=== PATIENT | female | born 1985 | race Caucasian/White ===

== ENCOUNTER 2017-09-15 12:50 | Outpatient (CLI) | payer MEDICAID | END 2017-09-15 12:51 | disposition home or self-care (01) | LOC: BICULT 12:50 | PROVIDERS: ATTEND Family Medicine | DX: R10.2 Pelvic and perineal pain (principal); N85.4 Malposition of uterus; Z97.5 Presence of (intrauterine) contraceptive device | CPT/HCPCS: 76856 ==

== ENCOUNTER 2018-06-29 13:30 | Outpatient (CLI) | payer MEDICAID ==
--- NOTE | 2018-06-29 15:31 | ULT ---
LIMITED ULTRASOUND RIGHT BREAST: DATE: 06/29/2018. HISTORY: Palpable abnormality in the upper inner right breast as well as a small mass seen in the upper outer right breast on mammographic evaluation. FINDINGS: Limited sonographic evaluation of the mass in the upper outer right breast demonstrates a hypoechoic oval-shaped mass with echogenic areas centrally demonstrating characteristics most compatible with a lymph node. This measures 5 mm and does correspond to mammographic abnormality. Limited sonographic evaluation of the right breast in the region of the patient's palpable abnormalit y demonstrates no mass or cystic lesion. This is located at the 1 o'clock position right breast. Limited ultrasound of the left breast was performed to evaluate for symmetry, and breast parenchyma i s overall symmetric to the right breast. However, at the 1 o'clock position left breast, there is a hypoechoic nodule with echogenic area centrally most compatible with a lymph node which is also seen on mammographic evaluation. IMPRESSION: 1. BIRADS category 2, benign findings. Routine annual mammographic screening is recommended. 2. Negative mammographic or sonographic findings should not preclude biopsy of a clinically suspicio us palpable abnormality. 3. Benign-appearing lymph nodes in each breast. These lymph nodes are also seen on mammographic marcelo luation. POS: OFF
== END 2018-06-29 13:31 | disposition home or self-care (01) ==
LOC: BICULT 13:30
PROVIDERS: ATTEND Nurse Practitioner Women's Health
DX: N63.10 Unspecified lump in the right breast, unspecified quadrant (principal)
CPT/HCPCS: 77066; G0279

== ENCOUNTER 2019-07-06 09:00 | Emergency (ER) | payer MEDICAID, SELFPAY | END 2019-07-06 10:48 | disposition home or self-care (01) | LOC: ERS 09:00 | DX: S09.90XA Unspecified injury of head, initial encounter (principal); J06.9 Acute upper respiratory infection, unspecified; F43.10 Post-traumatic stress disorder, unspecified; F17.210 Nicotine dependence, cigarettes, uncomplicated; W22.8XXA Striking against or struck by other objects, initial encounter | CPT/HCPCS: 87804; 99283 ==

== ENCOUNTER 2020-01-20 11:27 | Emergency (ER) | payer SELFPAY ==
[2020-01-20 13:13] LABS: #Basophils 0.1 thou/uL (0.0-0.2); #Eosinphils 0.1 thou/uL (0.0-0.7); #Lymphocytes 1.3 thou/uL (1.20-3.40); #Monocytes 0.6 thou/uL (0.11-0.59); #Neutrophils 3.1 thou/uL (1.40-6.50); %Basophils 1.5 % (0.0-1.0); %Eosinophils 1.1 % (0.0-10.0); %Lymphocytes 25.5 % (21.0-51.0); %Monocytes 11.2 % (0.0-10.0); %Neutrophils 60.7 % (42.0-75.0); Hemoglobin 15.8 g/dL (12.0-16.0); Mean Corpuscular HGB CONC 33.9 g/dL (32.0-36.0); Mean Corpuscular Hemoglobin 35.2 pg (27.0-31.0); Mean Platelet Volume 8.3 fL (7.4-10.4); Platelet Count 186 thou/uL (130-400); RBC Distribution Width 10.3 % (11.5-14.5); Red Blood Cell (RBC) Count 4.49 mill/uL (4.20-5.40); White Blood Cell (WBC) Count 5.1 thou/uL (4.8-10.8)
--- NOTE | 2020-01-20 13:29 | RAD ---
CHEST 1 VIEW PORTABLE: Date: 03/21/2020 HISTORY: Chest pain for 2 weeks. FINDINGS: Heart size is within normal limits. The lungs are clear. No confluent pneumonia, overt edema, or pleu ral effusion. IMPRESSION: No significant acute intrathoracic disease. POS: RRE
[2020-01-20 13:34] LABS: ALT (SGPT) 86 U/L (8-55); AST (SGOT) 80 U/L (5-34); Albumin 4.6 g/dL (3.5-5.0); Alkaline Phosphatase 68 U/L (40-110); Anion Gap 13 mmol/L (10-20); BUN (Urea Nitrogen) 6 mg/dL (7.0-18.7); Bilirubin, Total 0.6 mg/dL (0.2-1.2); Calc. Creatinine Clearance 0 mL/min (70-130); Calcium 9.9 mg/dL (7.8-10.44); Carbon Dioxide 25 mmol/L (22-29); Chloride 104 mmol/L (98-107); Estimated GFR-MDRD 84; Globulin 3.1 g/dL (2.4-3.5); Glucose 102 mg/dL (70-105); Lipase 41 U/L (8-78); Potassium 4.3 mmol/L (3.5-5.1); Protein, Total 7.7 g/dL (6.0-8.3); Sodium 138 mmol/L (136-145)
[2020-01-20] MEDS ORDERED: chlordiazePOXIDE HCl 25 MG CAP PO SCH (14:30)
[2020-01-20] MEDS ORDERED: chlordiazePOXIDE HCl 25 MG CAP ONE (14:31)
== END 2020-01-20 14:51 | disposition home or self-care (01) ==
LOC: ERS 11:27
DX: F10.230 Alcohol dependence with withdrawal, uncomplicated (principal); F41.9 Anxiety disorder, unspecified; R07.89 Other chest pain; F17.210 Nicotine dependence, cigarettes, uncomplicated; F43.10 Post-traumatic stress disorder, unspecified
CPT/HCPCS: 36415; 71045; 80053; 83690; 84484; 85025; 85379; 93005